=== PATIENT | male | born 1965 | race Two or more races ===

== ENCOUNTER 2018-05-12 20:59 | Emergency (ER) | payer OTHER ==
[~2018-05-12] VITALS: Ht 403.9 cm; Wt 86.2 kg
[2018-05-12] MEDS ORDERED: SYNTHROID112 MCG (21:16)
[2018-05-12] MEDS ORDERED: DEPAKOTE ER500 MG (21:16)
[2018-05-12] MEDS ORDERED: GLUCOPHAGE XR500 MG (21:16)
[2018-05-12] MEDS ORDERED: ZOLOFT50 MG (21:17)
[2018-05-12] MEDS ORDERED: CLONAZEPAM0.5 MG (21:17)
[2018-05-12] MEDS ORDERED: LAMICTAL25 MG (21:17)
[2018-05-12] MEDS ORDERED: ATIVAN0.5 M1 (21:17)
[2018-05-12] MEDS ORDERED: SEROQUEL200 MG (21:17)
== END 2018-05-13 10:28 | disposition home or self-care (01) ==
LOC: ER 20:59 → EDSEX 22:09 → ER 22:09
DX: F06.4 Anxiety disorder due to known physiological condition (principal); Z59.0 Homelessness; F22 Delusional disorders